=== PATIENT | female | born 1980 | race Caucasian/White ===

== ENCOUNTER 2019-08-10 11:11 | Inpatient (IN) ==
[2019-08-10 14:24] LABS: Basophils % 0.1 % (0.0-0.8); Eosinophils % 0.3 % (0.00-10.9); Hematocrit 36.1 VOL% (35.7-47.0); Hemoglobin 11.9 GM/DL (12.0-16.0); Immature Granulocytes % 1.2 %; Immature Granulocytes Absolute 0.17 #; Lymphocytes # 0.9 10*3/uL (1.4-4.0); Lymphocytes % 6.7 % (21.3-54.2); Mean Corpuscular Volume 91.6 FL (87-102); Mean Platelet Volume 11.9 FL (9.6-12.0); Monocytes % 5.1 % (1.7-12.7); Neutrophils % 86.6 % (38.7-73.9); Platelet Count 133 T/CUMM (130-400); Red Blood Count 3.94 MC/CUMM (3.8-5.5); White Blood Count 13.7 T/CUMM (4-12)
[2019-08-10 14:54] LABS: Albumin 2.4 G/DL (3.4-5.0); Bilirubin,Total 0.8 MG/DL (0.2-1.0); Calcium 8.3 MG/DL (8.5-10.1); Osmolality,Calculated 276.4 MOS/KG (273-304); Total Protein 7.1 G/DL (6.4-8.3)
[2019-08-10] MEDS ORDERED: NICOTINE 21 MG/24 HR PATCH TRANSDERM PRN (16:54)
[2019-08-10] MEDS ORDERED: hydrALAZINE 20 MG/1 ML VIAL IV PRN (16:54)
[2019-08-10] MEDS ORDERED: diphenhydrAMINE CAP 25 MG CAPSULE PO PRN (16:54)
[2019-08-10] MEDS ORDERED: DOCUSATE SODIUM 100 MG CAPSULE PO PRN (16:54)
[2019-08-10] MEDS ORDERED: BISACODYL 5 MG TABLET PO PRN (16:54)
[2019-08-10] MEDS: SODIUM CHLORIDE 0.9% 1,000 ML IV SCH (17:39)
[2019-08-10] MEDS: PANTOPRAZOLE 40 MG TABLET PO SCH (17:39)
[2019-08-10 18:31] LABS: HIV Antigen/Antibody Result Nonreactive (Nonreactive)
[2019-08-10] MEDS: ENOXAPARIN 30 MG/0.3 ML SYRINGE SUBCUT SCH (20:27)
[2019-08-10] MEDS: CEFUROXIME IV SCH (20:27)
[2019-08-10] MEDS: DOXYCYCLINE HYCLATE 100 MG CAPSULE PO SCH (20:27)
[2019-08-10] MEDS: SODIUM CHLORIDE 0.9% IV SCH (20:27)
[2019-08-10] MEDS: MORPHINE 4 MG/1 ML VIAL IV PRN (20:34)
[2019-08-10 23:49] LABS: Hepatitis B Core IgM Quant 0.17 Index; Hepatitis B Surface Ab Result Positive; Hepatitis B Surface Ag Quant < 0.10 Index; Hepatitis B Surface Ag Result Negative (Negative); Hepatitis C Virus Ab Quant < 0.02 Index; Hepatitis C Virus Ab Result Negative (Negative)
[2019-08-10 23:54] LABS: Apearance,Urine CLOUDY (Clear); Bacteria,Urine Occasional /HPF (Few); Bilirubin,Urine Negative (Negative); Blood, Urine Moderate mg/dL (Negative); Glucose,Urine (UA) Negative (Negative); Ketones,Urine Negative (Negative); Nitrite,Urine Negative (Negative); Protein,Urine 30 MG/DL; RBC,Urine 2 /HPF (0-4); Squamous Epithelial Cell,Urine Occasional /HPF (0-10); Urine Color Amber (Yellow); Urine Specific Gravity 1.012 (1.001-1.035); WBC,Urine 68 /HPF (0-6)
[2019-08-11] MEDS: MORPHINE 4 MG/1 ML VIAL IV PRN ×3 (00:23→18:06)
[2019-08-11] MEDS: SODIUM CHLORIDE 0.9% 1,000 ML IV SCH ×3 (00:49→16:33)
[2019-08-11] MEDS ORDERED: HYDROmorphone 2 MG/1 ML VIAL IV ONE (05:44)
[2019-08-11 05:46] LABS: Basophils % 0.2 % (0.0-0.8); Hematocrit 31.3 VOL% (35.7-47.0); Hemoglobin 10.3 GM/DL (12.0-16.0); Immature Granulocytes % 1.2 %; Immature Granulocytes Absolute 0.17 #; Lymphocytes # 1.2 10*3/uL (1.4-4.0); Lymphocytes % 8.1 % (21.3-54.2); Mean Corpuscular HGB Conc 32.9 GM/DL (32-36); Mean Corpuscular Volume 92.3 FL (87-102); Mean Platelet Volume 12.2 FL (9.6-12.0); Monocytes % 4.9 % (1.7-12.7); Neutrophils % 85.6 % (38.7-73.9); Platelet Count 139 T/CUMM (130-400); Red Blood Count 3.39 MC/CUMM (3.8-5.5); Red Cell Distribution Width 13.2 % (9.3-17.3); White Blood Count 14.2 T/CUMM (4-12)
[2019-08-11 06:02] LABS: Albumin 2.1 G/DL (3.4-5.0); Total Protein 6.3 G/DL (6.4-8.3)
[2019-08-11] MEDS: ONDANSETRON 4 MG/2 ML VIAL IV PRN (06:43)
[2019-08-11] MEDS: DOXYCYCLINE HYCLATE 100 MG CAPSULE PO SCH ×2 (08:06→20:18)
[2019-08-11] MEDS: PANTOPRAZOLE 40 MG TABLET PO SCH (08:06)
[2019-08-11] MEDS ORDERED: CALCIUM CARBONATE CHEW 500 MG TABLET PO PRN (17:28)
[2019-08-11] MEDS: ENOXAPARIN 30 MG/0.3 ML SYRINGE SUBCUT SCH (20:18)
[2019-08-11] MEDS: CEFUROXIME IV SCH (20:18)
[2019-08-11] MEDS: SODIUM CHLORIDE 0.9% IV SCH (20:18)
[2019-08-11] MEDS: HYDROmorphone 2 MG/1 ML VIAL IV PRN (21:51)
[2019-08-12] MEDS: SODIUM CHLORIDE 0.9% 1,000 ML IV SCH ×3 (00:43→18:50)
[2019-08-12 04:16] LABS: Basophils # 0.1 10*3/uL (0.0-0.2); Basophils % 0.2 % (0.0-0.8); Hematocrit 32.5 VOL% (35.7-47.0); Hemoglobin 10.2 GM/DL (12.0-16.0); Immature Granulocytes % 1.6 %; Immature Granulocytes Absolute 0.34 #; Lymphocytes % 9.5 % (21.3-54.2); Mean Corpuscular HGB Conc 31.4 GM/DL (32-36); Mean Corpuscular Volume 95.3 FL (87-102); Mean Platelet Volume 11.8 FL (9.6-12.0); Monocytes % 4.1 % (1.7-12.7); Neutrophils % 84.6 % (38.7-73.9); Platelet Count 161 T/CUMM (130-400); Red Blood Count 3.41 MC/CUMM (3.8-5.5); Red Cell Distribution Width 14.1 % (9.3-17.3); White Blood Count 20.9 T/CUMM (4-12)
[2019-08-12 04:39] LABS: Albumin 2.1 G/DL (3.4-5.0); Bilirubin,Total 1.5 MG/DL (0.2-1.0); Calcium 8.3 MG/DL (8.5-10.1); Osmolality,Calculated 286.7 MOS/KG (273-304); Total Protein 6.4 G/DL (6.4-8.3)
[2019-08-12 04:50] LABS: Band Neutrophils 5 % (0-10); Eosinophils 1 % (0-10); Lymphocytes 9 % (20-55); Metamyelocytes 2 %; Segmented Neutrophils 82 % (50-85); Total Cells Counted 100
[2019-08-12 04:51] LABS: Macrocytosis Slight
[2019-08-12 04:52] LABS: Platelet Estimate Adequate
[2019-08-12] MEDS: HYDROmorphone 2 MG/1 ML VIAL IV PRN ×3 (06:01→19:31)
[2019-08-12] MEDS: PANTOPRAZOLE 40 MG TABLET PO SCH (08:15)
[2019-08-12] MEDS: DOXYCYCLINE HYCLATE 100 MG CAPSULE PO SCH ×2 (08:15→20:36)
[2019-08-12] MEDS ORDERED: cefOXitin 1,000 MG in SYRINGE 1 EACH IV SCH (11:00)
[2019-08-12] MEDS: POTASSIUM CHLORIDE 20 MEQ TABLET PO SCH ×2 (14:40→18:50)
[2019-08-12] MEDS: cefOXitin 1,000 MG in SYRINGE 1 EACH IV SCH ×2 (14:40→23:00)
[2019-08-12] MEDS: ENOXAPARIN 30 MG/0.3 ML SYRINGE SUBCUT SCH (20:37)
[2019-08-12] MEDS: ONDANSETRON 4 MG/2 ML VIAL IV PRN (21:11)
[2019-08-13] MEDS: SODIUM CHLORIDE 0.9% 1,000 ML IV SCH ×3 (03:13→16:32)
[2019-08-13 05:14] LABS: Basophils # 0.1 10*3/uL (0.0-0.2); Basophils % 0.2 % (0.0-0.8); Eosinophils % 0.1 % (0.00-10.9); Hematocrit 27.4 VOL% (35.7-47.0); Hemoglobin 9.1 GM/DL (12.0-16.0); Immature Granulocytes % 2.8 %; Immature Granulocytes Absolute 0.64 #; Lymphocytes # 1.9 10*3/uL (1.4-4.0); Lymphocytes % 8.6 % (21.3-54.2); Mean Corpuscular HGB Conc 33.2 GM/DL (32-36); Mean Corpuscular Volume 92.3 FL (87-102); Mean Platelet Volume 11.4 FL (9.6-12.0); Monocytes % 5.4 % (1.7-12.7); Neutrophils % 82.9 % (38.7-73.9); Platelet Count 179 T/CUMM (130-400); Red Blood Count 2.97 MC/CUMM (3.8-5.5); Red Cell Distribution Width 13.9 % (9.3-17.3); White Blood Count 22.6 T/CUMM (4-12)
[2019-08-13 05:41] LABS: Albumin 1.7 G/DL (3.4-5.0); Bilirubin,Total 1.2 MG/DL (0.2-1.0); Eosinophils 1 % (0-10); Hypochromasia 1+; Lymphocytes 9 % (20-55); Macrocytosis Slight; Osmolality,Calculated 281.7 MOS/KG (273-304); Ovalocytes Slight; Platelet Estimate Adequate; Segmented Neutrophils 84 % (50-85); Total Cells Counted 100; Total Protein 5.8 G/DL (6.4-8.3)
[2019-08-13] MEDS ORDERED: MAGNESIUM SULF RIDER 2 GM in PREMIX 1 EACH IV PRN (08:03)
[2019-08-13] MEDS: PANTOPRAZOLE 40 MG TABLET PO SCH (08:55)
[2019-08-13] MEDS: HYDROmorphone 2 MG/1 ML VIAL IV PRN ×2 (09:16→16:30)
[2019-08-13] MEDS: DOXYCYCLINE HYCLATE 100 MG CAPSULE PO SCH (10:57)
[2019-08-13] MEDS: PIPERACILLIN/TAZOBACTAM 3,375 MG in SODIUM CHLORIDE 0.9% 100 ML IV SCH ×2 (12:27→18:35)
[2019-08-13] MEDS: MAGNESIUM SULF RIDER 4 GM in PREMIX 1 EACH IV PRN (16:31)
[2019-08-13] MEDS: POTASSIUM CHLORIDE 20 MEQ TABLET PO PRN (16:31)
[2019-08-13] MEDS: ENOXAPARIN 30 MG/0.3 ML SYRINGE SUBCUT SCH (20:09)
[2019-08-14] MEDS: HYDROmorphone 2 MG/1 ML VIAL IV PRN ×4 (01:00→23:37)
[2019-08-14] MEDS: SODIUM CHLORIDE 0.9% 1,000 ML IV SCH ×3 (01:08→17:50)
[2019-08-14] MEDS: PIPERACILLIN/TAZOBACTAM 3,375 MG in SODIUM CHLORIDE 0.9% 100 ML IV SCH ×3 (01:53→17:51)
[2019-08-14 05:50] LABS: Basophils # 0.1 10*3/uL (0.0-0.2); Basophils % 0.2 % (0.0-0.8); Eosinophils % 0.2 % (0.00-10.9); Hematocrit 28.1 VOL% (35.7-47.0); Hemoglobin 9.1 GM/DL (12.0-16.0); Immature Granulocytes % 4.6 %; Immature Granulocytes Absolute 0.94 #; Lymphocytes # 2.5 10*3/uL (1.4-4.0); Mean Corpuscular HGB Conc 32.4 GM/DL (32-36); Mean Platelet Volume 11.1 FL (9.6-12.0); Monocytes % 6.1 % (1.7-12.7); Neutrophils % 76.9 % (38.7-73.9); Platelet Count 258 T/CUMM (130-400); Red Blood Count 3.02 MC/CUMM (3.8-5.5); White Blood Count 20.5 T/CUMM (4-12)
[2019-08-14 06:14] LABS: Band Neutrophils 1 % (0-10); Eosinophils 1 % (0-10); Hypochromasia 1+; Lymphocytes 13 % (20-55); Microcytosis Slight; Segmented Neutrophils 78 % (50-85); Total Cells Counted 100
[2019-08-14 06:15] LABS: Platelet Estimate Normal
[2019-08-14 06:19] LABS: Albumin 1.6 G/DL (3.4-5.0); Bilirubin,Total 1.9 MG/DL (0.2-1.0); Osmolality,Calculated 277.7 MOS/KG (273-304)
[2019-08-14] MEDS: ACETAMINOPHEN 325 MG TABLET PO PRN (09:39)
[2019-08-14] MEDS: PANTOPRAZOLE 40 MG TABLET PO SCH (09:39)
[2019-08-14] MEDS: ENOXAPARIN 30 MG/0.3 ML SYRINGE SUBCUT SCH (20:08)
[2019-08-15] MEDS: SODIUM CHLORIDE 0.9% 1,000 ML IV SCH ×3 (00:59→18:22)
[2019-08-15] MEDS: PIPERACILLIN/TAZOBACTAM 3,375 MG in SODIUM CHLORIDE 0.9% 100 ML IV SCH ×3 (01:33→17:48)
[2019-08-15] MEDS: HYDROmorphone 2 MG/1 ML VIAL IV PRN ×3 (04:59→19:31)
[2019-08-15 05:46] LABS: Basophils % 0.2 % (0.0-0.8); Eosinophils # 0.1 10*3/uL (0.0-0.87); Eosinophils % 0.4 % (0.00-10.9); Hematocrit 28.3 VOL% (35.7-47.0); Hemoglobin 8.9 GM/DL (12.0-16.0); Immature Granulocytes % 3.7 %; Lymphocytes # 2.6 10*3/uL (1.4-4.0); Lymphocytes % 13.9 % (21.3-54.2); Mean Corpuscular HGB Conc 31.4 GM/DL (32-36); Mean Corpuscular Volume 96.6 FL (87-102); Mean Platelet Volume 10.7 FL (9.6-12.0); Monocytes % 7.2 % (1.7-12.7); Neutrophils % 74.6 % (38.7-73.9); Red Blood Count 2.93 MC/CUMM (3.8-5.5); Red Cell Distribution Width 14.4 % (9.3-17.3); White Blood Count 18.9 T/CUMM (4-12)
[2019-08-15 05:49] LABS: Platelet Count 312 T/CUMM (130-400)
[2019-08-15 06:13] LABS: Albumin 1.7 G/DL (3.4-5.0); Bilirubin,Total 1.6 MG/DL (0.2-1.0); Calcium 8.3 MG/DL (8.5-10.1); Osmolality,Calculated 275.5 MOS/KG (273-304); Total Protein 6.5 G/DL (6.4-8.3)
[2019-08-15 06:40] LABS: Folate 10.7 NG/ML (5.4-24.0); Vitamin B12 1002 PG/ML (211-911)
[2019-08-15 06:44] LABS: Band Neutrophils 2 % (0-10); Hypochromasia 1+; Lymphocytes 7 % (20-55); Macrocytosis Slight; Metamyelocytes 1 %; Segmented Neutrophils 84 % (50-85); Total Cells Counted 100
[2019-08-15 06:45] LABS: Platelet Estimate Normal
[2019-08-15 07:31] LABS: Sedimentation Rate-Westergren 120 MM/HR (0-20)
[2019-08-15 08:56] LABS: Hemoglobin A1 (Alkaline) 97.1 % (96.5-98.5); Hemoglobin A2 (Alkaline) 2.9 % (1.5-3.5)
[2019-08-15] MEDS: ACETAMINOPHEN 325 MG TABLET PO PRN (09:30)
[2019-08-15] MEDS: PANTOPRAZOLE 40 MG TABLET PO SCH (09:30)
[2019-08-15] MEDS: MAGNESIUM SULF RIDER 4 GM in PREMIX 1 EACH IV PRN (12:00)
[2019-08-16] MEDS: HYDROmorphone 2 MG/1 ML VIAL IV PRN ×3 (01:06→20:20)
[2019-08-16] MEDS: PIPERACILLIN/TAZOBACTAM 3,375 MG in SODIUM CHLORIDE 0.9% 100 ML IV SCH ×3 (02:47→17:54)
[2019-08-16] MEDS: ACETAMINOPHEN 325 MG TABLET PO PRN ×2 (04:06→09:30)
[2019-08-16 07:01] LABS: Basophils % 0.2 % (0.0-0.8); Eosinophils # 0.1 10*3/uL (0.0-0.87); Eosinophils % 0.4 % (0.00-10.9); Hemoglobin 8.5 GM/DL (12.0-16.0); Immature Granulocytes % 2.6 %; Immature Granulocytes Absolute 0.54 #; Lymphocytes # 3.2 10*3/uL (1.4-4.0); Lymphocytes % 15.3 % (21.3-54.2); Mean Corpuscular HGB Conc 31.5 GM/DL (32-36); Mean Corpuscular Volume 94.7 FL (87-102); Mean Platelet Volume 10.7 FL (9.6-12.0); Monocytes % 5.7 % (1.7-12.7); Neutrophils % 75.8 % (38.7-73.9); Platelet Count 350 T/CUMM (130-400); Red Blood Count 2.85 MC/CUMM (3.8-5.5); Red Cell Distribution Width 14.5 % (9.3-17.3); White Blood Count 21.1 T/CUMM (4-12)
[2019-08-16 07:24] LABS: Band Neutrophils 1 % (0-10); Lymphocytes 11 % (20-55); Metamyelocytes 3 %; Myelocytes 1 %; Segmented Neutrophils 79 % (50-85); Total Cells Counted 100
[2019-08-16 07:25] LABS: Calcium 7.9 MG/DL (8.5-10.1); Osmolality,Calculated 275.5 MOS/KG (273-304); Ovalocytes Few; Platelet Estimate Normal; Polychromasia Slight; Schistocytes Slight
[2019-08-16] MEDS: PANTOPRAZOLE 40 MG TABLET PO SCH (09:29)
[2019-08-16] MEDS: POTASSIUM CHLORIDE 20 MEQ TABLET PO PRN ×2 (09:31→13:41)
[2019-08-16] MEDS ORDERED: VANCOMYCIN INJ 1,000 MG in SODIUM CHLORIDE 0.9% 250 ML IV ONE (10:34)
[2019-08-16] MEDS: POLYETHYLENE GLYCOL POWDER 17 GM PACK PO SCH (10:54)
[2019-08-16] MEDS ORDERED: BISACODYL 10 MG SUPP RECTAL PRN (14:31)
[2019-08-16] MEDS ORDERED: MAGNESIUM HYDROXIDE SUSP 30 ML UDCUP PO ONE (14:31)
[2019-08-16 14:51] LABS: Bilirubin,Direct 0.26 MG/DL (0.0-0.20)
[2019-08-16 15:24] LABS: Apearance,Urine Slightly Hazy (Clear); Bilirubin,Urine Negative (Negative); Blood, Urine Negative (Negative); Glucose,Urine (UA) Negative (Negative); Ketones,Urine Negative (Negative); Mucus,Urine Occasional /LPF (Occasional); Nitrite,Urine Negative (Negative); Protein,Urine Negative; RBC,Urine 1 /HPF (0-4); Squamous Epithelial Cell,Urine Occasional /HPF (0-10); Urine Color Straw (Yellow); Urine Specific Gravity 1.008 (1.001-1.035); Urine Urobilinogen < 2.0 EU/DL (0.2-1.0); WBC,Urine 2 /HPF (0-6)
[2019-08-17] MEDS: HYDROmorphone 2 MG/1 ML VIAL IV PRN ×2 (02:24→10:07)
[2019-08-17] MEDS: PIPERACILLIN/TAZOBACTAM 3,375 MG in SODIUM CHLORIDE 0.9% 100 ML IV SCH ×3 (02:24→17:55)
[2019-08-17 06:29] LABS: Basophils % 0.2 % (0.0-0.8); Eosinophils % 0.2 % (0.00-10.9); Hematocrit 26.5 VOL% (35.7-47.0); Hemoglobin 8.4 GM/DL (12.0-16.0); Immature Granulocytes % 1.5 %; Immature Granulocytes Absolute 0.29 #; Lymphocytes # 2.7 10*3/uL (1.4-4.0); Lymphocytes % 13.5 % (21.3-54.2); Mean Corpuscular HGB Conc 31.7 GM/DL (32-36); Mean Corpuscular Volume 94.6 FL (87-102); Mean Platelet Volume 10.2 FL (9.6-12.0); Monocytes % 4.9 % (1.7-12.7); Neutrophils % 79.7 % (38.7-73.9); Platelet Count 393 T/CUMM (130-400); Red Cell Distribution Width 14.4 % (9.3-17.3); White Blood Count 19.7 T/CUMM (4-12)
[2019-08-17 06:55] LABS: Anisocytosis 1+; Hypochromasia 1+; Platelet Estimate Normal
[2019-08-17 07:03] LABS: Osmolality,Calculated 277.4 MOS/KG (273-304)
[2019-08-17] MEDS: PANTOPRAZOLE 40 MG TABLET PO SCH (08:09)
[2019-08-17] MEDS: POLYETHYLENE GLYCOL POWDER 17 GM PACK PO SCH (08:10)
[2019-08-17] MEDS: PANTOPRAZOLE 40 MG VIAL IV SCH ×2 (08:57→21:54)
[2019-08-17] MEDS: VANCOMYCIN INJ 750 MG in SODIUM CHLORIDE 0.9% 250 ML IV SCH (13:53)
[2019-08-17] MEDS: oxyCODONE/ACETAMINOPHEN 5-325 MG TABLET PO PRN ×2 (15:50→21:53)
[2019-08-18] MEDS: PIPERACILLIN/TAZOBACTAM 3,375 MG in SODIUM CHLORIDE 0.9% 100 ML IV SCH ×3 (02:53→17:30)
[2019-08-18 06:09] LABS: Basophils % 0.2 % (0.0-0.8); Eosinophils # 0.1 10*3/uL (0.0-0.87); Eosinophils % 0.6 % (0.00-10.9); Hematocrit 25.4 VOL% (35.7-47.0); Hemoglobin 8.2 GM/DL (12.0-16.0); Immature Granulocytes % 1.4 %; Immature Granulocytes Absolute 0.22 #; Lymphocytes # 2.7 10*3/uL (1.4-4.0); Lymphocytes % 17.2 % (21.3-54.2); Mean Corpuscular HGB Conc 32.3 GM/DL (32-36); Mean Corpuscular Volume 93.7 FL (87-102); Mean Platelet Volume 10.3 FL (9.6-12.0); Monocytes % 4.9 % (1.7-12.7); Neutrophils % 75.7 % (38.7-73.9); Platelet Count 392 T/CUMM (130-400); Red Blood Count 2.71 MC/CUMM (3.8-5.5); Red Cell Distribution Width 14.4 % (9.3-17.3); White Blood Count 15.8 T/CUMM (4-12)
[2019-08-18 06:24] LABS: Calcium 7.7 MG/DL (8.5-10.1); Osmolality,Calculated 279.3 MOS/KG (273-304)
[2019-08-18 06:32] LABS: Albumin 1.5 G/DL (3.4-5.0); Bilirubin,Total 0.4 MG/DL (0.2-1.0); Osmolality,Calculated 275.5 MOS/KG (273-304); Total Protein 6.3 G/DL (6.4-8.3)
[2019-08-18 07:16] LABS: Atypical Lymphocytes Few; Band Neutrophils 1 % (0-10); Eosinophils 2 % (0-10); Hypochromasia 1+; Lymphocytes 20 % (20-55); Segmented Neutrophils 75 % (50-85); Total Cells Counted 100
[2019-08-18 07:17] LABS: Microcytosis Slight
[2019-08-18 07:18] LABS: Platelet Estimate Normal
[2019-08-18] MEDS: FERROUS SULFATE 325 MG TABLET PO SCH (08:02)
[2019-08-18] MEDS: PANTOPRAZOLE 40 MG VIAL IV SCH ×2 (08:02→20:25)
[2019-08-18] MEDS: POLYETHYLENE GLYCOL POWDER 17 GM PACK PO SCH (08:03)
[2019-08-18] MEDS: oxyCODONE/ACETAMINOPHEN 5-325 MG TABLET PO PRN ×2 (10:57→20:25)
[2019-08-18] MEDS: VANCOMYCIN INJ 750 MG in SODIUM CHLORIDE 0.9% 250 ML IV SCH (15:20)
[2019-08-19] MEDS: PIPERACILLIN/TAZOBACTAM 3,375 MG in SODIUM CHLORIDE 0.9% 100 ML IV SCH (02:49)
[2019-08-19 04:53] LABS: Basophils % 0.2 % (0.0-0.8); Eosinophils # 0.1 10*3/uL (0.0-0.87); Eosinophils % 0.7 % (0.00-10.9); Hematocrit 26.4 VOL% (35.7-47.0); Hemoglobin 8.3 GM/DL (12.0-16.0); Immature Granulocytes Absolute 0.17 #; Lymphocytes # 2.8 10*3/uL (1.4-4.0); Lymphocytes % 16.8 % (21.3-54.2); Mean Corpuscular HGB Conc 31.4 GM/DL (32-36); Mean Corpuscular Volume 95.7 FL (87-102); Mean Platelet Volume 10.4 FL (9.6-12.0); Monocytes % 5.2 % (1.7-12.7); Neutrophils % 76.1 % (38.7-73.9); Platelet Count 450 T/CUMM (130-400); Red Blood Count 2.76 MC/CUMM (3.8-5.5); White Blood Count 16.9 T/CUMM (4-12)
[2019-08-19 05:07] LABS: Calcium 7.9 MG/DL (8.5-10.1); Osmolality,Calculated 278.3 MOS/KG (273-304)
[2019-08-19] MEDS ORDERED: GENTAMICIN INJ 60 MG in SODIUM CHLORIDE 0.9% 100 ML IV SCH (09:30)
[2019-08-19] MEDS: PANTOPRAZOLE 40 MG VIAL IV SCH ×2 (10:11→20:29)
[2019-08-19] MEDS: CLINDAMYCIN INJ 900 MG in PREMIX 1 EACH IV SCH ×2 (10:17→18:06)
[2019-08-19] MEDS: POLYETHYLENE GLYCOL POWDER 17 GM PACK PO SCH (10:18)
[2019-08-19] MEDS: FERROUS SULFATE 325 MG TABLET PO SCH (10:18)
[2019-08-19] MEDS ORDERED: GENTAMICIN INJ 100 MG in SODIUM CHLORIDE 0.9% 100 ML IV ONE (11:00)
[2019-08-19] MEDS ORDERED: propofoL 200 MG/20 ML VIAL IV ONE (12:35)
[2019-08-19] MEDS ORDERED: LIDOCAINE 2% 5 ML VIAL ONE (12:35)
[2019-08-19] MEDS ORDERED: GENTAMICIN INJ 100 MG in PREMIX 1 EACH IV ONE (13:30)
[2019-08-19] MEDS: oxyCODONE/ACETAMINOPHEN 5-325 MG TABLET PO PRN (13:48)
[2019-08-19] MEDS ORDERED: BISACODYL 5 MG TABLET PO PRN (15:00)
[2019-08-19] MEDS ORDERED: BISACODYL 5 MG TABLET PO ONE (15:00)
[2019-08-19] MEDS ORDERED: POLYETHYLENE GLYCOL POWDER 255 GM BOTTLE PO ONE (17:00)
[2019-08-20] MEDS: CLINDAMYCIN INJ 900 MG in PREMIX 1 EACH IV SCH ×2 (02:33→12:25)
[2019-08-20 05:55] LABS: Basophils % 0.3 % (0.0-0.8); Eosinophils # 0.1 10*3/uL (0.0-0.87); Eosinophils % 0.6 % (0.00-10.9); Hematocrit 25.8 VOL% (35.7-47.0); Hemoglobin 8.2 GM/DL (12.0-16.0); Immature Granulocytes % 0.6 %; Immature Granulocytes Absolute 0.09 #; Lymphocytes # 2.4 10*3/uL (1.4-4.0); Lymphocytes % 16.9 % (21.3-54.2); Mean Corpuscular HGB Conc 31.8 GM/DL (32-36); Mean Corpuscular Volume 93.8 FL (87-102); Mean Platelet Volume 10.2 FL (9.6-12.0); Monocytes % 5.5 % (1.7-12.7); Neutrophils % 76.1 % (38.7-73.9); Platelet Count 424 T/CUMM (130-400); Red Blood Count 2.75 MC/CUMM (3.8-5.5); Red Cell Distribution Width 13.9 % (9.3-17.3); White Blood Count 14.1 T/CUMM (4-12)
[2019-08-20] MEDS ORDERED: MAGNESIUM CITRATE 300 ML BOTTLE PO ONE (06:00)
[2019-08-20 06:22] LABS: Calcium 8.1 MG/DL (8.5-10.1); Osmolality,Calculated 276.4 MOS/KG (273-304)
[2019-08-20] MEDS ORDERED: LACTATED RINGERS 1,000 ML IV SCH (08:00)
[2019-08-20] MEDS: POLYETHYLENE GLYCOL POWDER 17 GM PACK PO SCH (08:23)
[2019-08-20] MEDS: PANTOPRAZOLE 40 MG VIAL IV SCH (08:23)
[2019-08-20] MEDS ORDERED: LIDOCAINE 2% 5 ML VIAL ONE (12:31)
[2019-08-20] MEDS ORDERED: propofoL 200 MG/20 ML VIAL IV ONE (12:31)
[2019-08-20 12:58] VITALS: BP 132/73
[2019-08-20] MEDS: FERROUS SULFATE 325 MG TABLET PO SCH (13:03)
[2019-08-20] MEDS ORDERED: GENTAMICIN INJ 80 MG in PREMIX 1 EACH IV SCH (14:00)
== END 2019-08-20 15:07 | disposition home or self-care (01) | DRG 872 ==
LOC: N.5E → SUATTDRO 13:21
PROVIDERS: ADMIT Internal Medicine; ATTEND Internal Medicine